=== PATIENT | female | born 1980 | race Caucasian/White ===

== ENCOUNTER 2018-06-13 06:44 | Emergency (ER) | payer OTHER ==
[~2018-06-13] VITALS: Ht 170.2 cm; Wt 59.0 kg
[~2018-06-13 06:44] MED LIST: IBUP-466
[2018-06-13 07:23] VITALS: BP 150/83
== END 2018-06-13 09:11 | disposition left against medical advice (07) ==
LOC: ER 06:44
DX: F32.9 Major depressive disorder, single episode, unspecified (principal); F20.9 Schizophrenia, unspecified
CPT/HCPCS: 99284

== ENCOUNTER 2018-06-14 01:39 | Emergency (ER) | payer MEDICAID, OTHER ==
[~2018-06-14] VITALS: Ht 165.1 cm; Wt 71.0 kg
[2018-06-14] MEDS: QUETIAPINE FUMARATE 100MG TABLET PO SCH ×2 (04:00→10:00)
[2018-06-14 04:15] LABS: BASOPHILS % 0.8 % (0.0-2.0); EOSINOPHILS % 2.3 % (0.0-5.0); HEMATOCRIT. 41.5 % (36.0-48.0); HEMOGLOBIN. 13.9 g/dL (12.0-16.0); LYMPHOCYTES % 31.9 % (20.0-50.0); MEAN CORPUSCULAR HEMOGLOBIN 27.1 pg (28.0-32.0); MEAN CORPUSCULAR VOLUME 80.8 fL (81.0-99.0); MEAN PLATELET VOLUME 8.3 fl (7.4-10.4); MONOCYTES % 6.9 % (2.0-8.0); NEUTROPHILS % 58.1 % (40.0-76.0); PLATELET 353 x1000/uL (130-400); RED BLOOD CELL COUNT 5.14 mill/uL (4.2-5.4); RED CELL DISTRIBUTION WIDTH 13.9 % (11.6-14.6)
[2018-06-14 04:21] LABS: CHLORIDE 105 mEq/L (98-107)
[2018-06-14 04:25] LABS: ETHANOL BLOOD < 10 mg/dL
[2018-06-14 05:27] LABS: CLARITY URINE CLEAR (CLEAR); COLOR URINE YELLOW (YELLOW); KETONES URINE 1+ (NEGATIVE); LEUKOCYTE ESTERASE URINE NEGATIVE (NEGATIVE); NITRITE URINE NEGATIVE (NEGATIVE); OCCULT BLOOD URINE NEGATIVE (NEGATIVE); PH URINE 5.5 (4.5-8.0); PROTEIN URINE 1+ (NEGATIVE); SPECIFIC GRAVITY URINE 1.011 (1.005-1.030); UROBILINOGEN URINE 0.2 E.U./dL (0.2-1.0)
[2018-06-14 05:42] LABS: *BARBITURATES SCREEN URINE NEGATIVE (NEGATIVE)
[2018-06-14 05:43] LABS: *BENZODIAZEPINES SCREEN URINE NEGATIVE (NEGATIVE); *COCAINE SCREEN URINE NEGATIVE (NEGATIVE); METHADONE URINE SCREEN NEGATIVE (NEGATIVE); OPIATES URINE SCREEN NEGATIVE (NEGATIVE)
[2018-06-14 05:44] LABS: PHENCYCLIDINE URINE SCREEN NEGATIVE (NEGATIVE)
[2018-06-14 05:49] LABS: *AMPHETAMINES SCREEN URINE PRESUMTIVE POSITIVE (NEGATIVE); CANNABINOID URINE SCREEN PRESUMTIVE POSITIVE (NEGATIVE)
[2018-06-14 06:05] VITALS: BP 129/70
[2018-06-14] MEDS ORDERED: POTASSIUM CHLORIDE 20MEQ TABLET SR PO ONE (06:15)
== END 2018-06-14 12:13 | disposition home or self-care (01) ==
LOC: ER 02:17
DX: F20.9 Schizophrenia, unspecified (principal); F41.9 Anxiety disorder, unspecified; F31.9 Bipolar disorder, unspecified; F12.10 Cannabis abuse, uncomplicated
CPT/HCPCS: 36415; 80053; 80305; 81003; 81025; 82962; 85025; 93005; 99285; G0482; Z7610

== ENCOUNTER 2018-08-25 14:22 | Emergency (ER) | payer MEDICAID ==
[~2018-08-25] VITALS: Ht 165.1 cm; Wt 59.0 kg
[2018-08-25 14:29] VITALS: BP 135/77
== END 2018-08-25 18:45 | disposition left against medical advice (07) ==
LOC: ER 16:49
DX: R10.30 Lower abdominal pain, unspecified (principal); Z53.21 Procedure and treatment not carried out due to patient leaving prior to being seen by health care provider

== ENCOUNTER 2018-09-05 08:36 | Emergency (ER) | payer MEDICAID ==
[~2018-09-05] VITALS: Ht 162.6 cm; Wt 67.0 kg
[2018-09-05] MEDS ORDERED: IBUPROFEN 600MG TABLET PO ONE (11:30)
[2018-09-05 12:30] LABS: BASOPHILS % 0.8 % (0.0-2.0); EOSINOPHILS % 1.6 % (0.0-5.0); HEMATOCRIT. 41.7 % (36.0-48.0); HEMOGLOBIN. 13.9 g/dL (12.0-16.0); LYMPHOCYTES % 27.9 % (20.0-50.0); MEAN CORPUSCULAR HEMOGLOBIN 26.9 pg (28.0-32.0); MEAN CORPUSCULAR VOLUME 80.5 fL (81.0-99.0); NEUTROPHILS % 63.7 % (40.0-76.0); PLATELET 452 x1000/uL (130-400); RED BLOOD CELL COUNT 5.18 mill/uL (4.2-5.4); RED CELL DISTRIBUTION WIDTH 14.3 % (11.6-14.6)
[2018-09-05 12:35] LABS: CHLORIDE 103 mEq/L (98-107)
[2018-09-05 12:39] LABS: ETHANOL BLOOD < 10 mg/dL
[2018-09-05 12:46] LABS: CLARITY URINE CLEAR (CLEAR); COLOR URINE YELLOW (YELLOW); KETONES URINE NEGATIVE (NEGATIVE); LEUKOCYTE ESTERASE URINE NEGATIVE (NEGATIVE); NITRITE URINE NEGATIVE (NEGATIVE); OCCULT BLOOD URINE NEGATIVE (NEGATIVE); PH URINE 7.5 (4.5-8.0); PROTEIN URINE NEGATIVE (NEGATIVE); SPECIFIC GRAVITY URINE 1.002 (1.005-1.030); UROBILINOGEN URINE 0.2 E.U./dL (0.2-1.0)
[2018-09-05 13:19] VITALS: BP 142/80
[2018-09-05 14:00] LABS: *BARBITURATES SCREEN URINE NEGATIVE (NEGATIVE); CANNABINOID URINE SCREEN NEGATIVE (NEGATIVE); METHADONE URINE SCREEN NEGATIVE (NEGATIVE); OPIATES URINE SCREEN NEGATIVE (NEGATIVE); PHENCYCLIDINE URINE SCREEN NEGATIVE (NEGATIVE)
[2018-09-05 14:01] LABS: *BENZODIAZEPINES SCREEN URINE NEGATIVE (NEGATIVE); *COCAINE SCREEN URINE NEGATIVE (NEGATIVE)
[2018-09-05 14:05] LABS: *AMPHETAMINES SCREEN URINE PRESUMTIVE POSITIVE (NEGATIVE)
== END 2018-09-05 13:23 | disposition home or self-care (01) ==
LOC: ER 08:36
DX: F15.10 Other stimulant abuse, uncomplicated (principal); F20.0 Paranoid schizophrenia; F31.9 Bipolar disorder, unspecified; F41.9 Anxiety disorder, unspecified; Z88.6 Allergy status to analgesic agent; Z79.899 Other long term (current) drug therapy
CPT/HCPCS: 36415; 80053; 80305; 81003; 81025; 85025; 99283; G0482

== ENCOUNTER 2018-09-27 07:43 | Emergency (ER) | payer MEDICAID ==
[~2018-09-27] VITALS: Ht 162.6 cm; Wt 62.0 kg
[2018-09-27] MEDS ORDERED: LORAZEPAM 2MG/ML CPJ IV ONE ×3 (09:45→19:30)
[2018-09-27] MEDS ORDERED: SODIUM CHLORIDE 0.9% 1,000 ML IV ONE ×2 (09:45→13:45)
[2018-09-27 09:48] LABS: BASOPHILS % 0.6 % (0.0-2.0); EOSINOPHILS % 1.2 % (0.0-5.0); HEMOGLOBIN. 14.8 g/dL (12.0-16.0); LYMPHOCYTES % 21.5 % (20.0-50.0); MEAN CORPUSCULAR HEMOGLOBIN 26.7 pg (28.0-32.0); MEAN CORPUSCULAR VOLUME 79.6 fL (81.0-99.0); MEAN PLATELET VOLUME 8.3 fl (7.4-10.4); MONOCYTES % 5.5 % (2.0-8.0); NEUTROPHILS % 71.2 % (40.0-76.0); PLATELET 415 x1000/uL (130-400); RED BLOOD CELL COUNT 5.53 mill/uL (4.2-5.4); RED CELL DISTRIBUTION WIDTH 14.3 % (11.6-14.6)
[2018-09-27 09:51] LABS: CHLORIDE 104 mEq/L (98-107)
[2018-09-27 09:55] LABS: ETHANOL BLOOD < 10 mg/dL
[2018-09-27 09:59] LABS: CREATINE KINASE 134 IU/L (26-192); HCG SCREEN NEGATIVE
[2018-09-27 10:57] LABS: CLARITY URINE CLEAR (CLEAR); COLOR URINE YELLOW (YELLOW); KETONES URINE TRACE (NEGATIVE); LEUKOCYTE ESTERASE URINE NEGATIVE (NEGATIVE); NITRITE URINE NEGATIVE (NEGATIVE); OCCULT BLOOD URINE NEGATIVE (NEGATIVE); PROTEIN URINE TRACE (NEGATIVE); SPECIFIC GRAVITY URINE 1.011 (1.005-1.030); UROBILINOGEN URINE 0.2 E.U./dL (0.2-1.0)
[2018-09-27 12:09] LABS: *BARBITURATES SCREEN URINE NEGATIVE (NEGATIVE); *BENZODIAZEPINES SCREEN URINE NEGATIVE (NEGATIVE); *COCAINE SCREEN URINE NEGATIVE (NEGATIVE); METHADONE URINE SCREEN NEGATIVE (NEGATIVE); OPIATES URINE SCREEN NEGATIVE (NEGATIVE)
[2018-09-27 12:10] LABS: CANNABINOID URINE SCREEN NEGATIVE (NEGATIVE); PHENCYCLIDINE URINE SCREEN NEGATIVE (NEGATIVE)
[2018-09-27 12:12] LABS: *AMPHETAMINES SCREEN URINE PRESUMTIVE POSITIVE (NEGATIVE)
[2018-09-28] MEDS ORDERED: SODIUM CHLORIDE 0.9% 1,000 ML IV ONE (11:30)
[2018-09-28 15:40] VITALS: BP 143/71
== END 2018-09-29 08:19 | disposition home or self-care (01) ==
LOC: ER 07:43
DX: T43.621A Poisoning by amphetamines, accidental (unintentional), initial encounter (principal); F32.9 Major depressive disorder, single episode, unspecified; R45.851 Suicidal ideations; R45.1 Restlessness and agitation; F15.10 Other stimulant abuse, uncomplicated; F20.9 Schizophrenia, unspecified; F31.9 Bipolar disorder, unspecified; F41.9 Anxiety disorder, unspecified; Z88.6 Allergy status to analgesic agent; Z79.899 Other long term (current) drug therapy; Y92.89 Other specified places as the place of occurrence of the external cause
CPT/HCPCS: 36415; 80053; 80305; 80307; 80329; 81003; 81025; 82550; 84443; 84703; 85025; 93005; 96374; 96376; 99284; G0482; J2060; J7030

== ENCOUNTER 2019-02-27 18:10 | Emergency (ER) | payer MEDICAID ==
[~2019-02-27] VITALS: Ht 167.6 cm; Wt 62.0 kg
[2019-02-27] MEDS ORDERED: SODIUM CHLORIDE 0.9% 1,000 ML IV ONE (19:52)
[2019-02-27] MEDS ORDERED: LIDOCAINE 1%/EPI 1:100,000 10 ML VIAL IJ ONE (20:00)
[2019-02-27] MEDS ORDERED: BACITRACIN ZINC OINT UDPKT TOP ONE (20:00)
[2019-02-27] MEDS ORDERED: IBUPROFEN 600MG TABLET PO ONE (20:00)
[2019-02-27] MEDS ORDERED: HALOPERIDOL LACTATE 5MG/ML VIAL IM ONE (20:15)
[2019-02-27] MEDS ORDERED: LORAZEPAM 2MG/ML CPJ IM ONE (20:15)
[2019-02-27 20:41] LABS: BASOPHILS % 0.5 % (0.0-2.0); EOSINOPHILS % 1.1 % (0.0-5.0); HEMATOCRIT. 39.6 % (36.0-48.0); HEMOGLOBIN. 13.3 g/dL (12.0-16.0); LYMPHOCYTES % 25.9 % (20.0-50.0); MEAN CORPUSCULAR HEMOGLOBIN 27.4 pg (28.0-32.0); MEAN CORPUSCULAR VOLUME 81.6 fL (81.0-99.0); MEAN PLATELET VOLUME 8.1 fl (7.4-10.4); MONOCYTES % 5.5 % (2.0-8.0); PLATELET 352 x1000/uL (130-400); RED BLOOD CELL COUNT 4.86 mill/uL (4.2-5.4); RED CELL DISTRIBUTION WIDTH 13.8 % (11.6-14.6)
[2019-02-27 20:44] LABS: CHLORIDE 107 mEq/L (98-107)
[2019-02-27 20:49] LABS: ETHANOL BLOOD < 10 mg/dL
[2019-02-27 20:52] LABS: HCG SCREEN NEGATIVE
[2019-02-27 23:20] LABS: CLARITY URINE CLEAR (CLEAR); COLOR URINE YELLOW (YELLOW); KETONES URINE NEGATIVE (NEGATIVE); LEUKOCYTE ESTERASE URINE NEGATIVE (NEGATIVE); NITRITE URINE NEGATIVE (NEGATIVE); OCCULT BLOOD URINE NEGATIVE (NEGATIVE); PH URINE 5.5 (4.5-8.0); PROTEIN URINE NEGATIVE (NEGATIVE); SPECIFIC GRAVITY URINE 1.007 (1.005-1.030); UROBILINOGEN URINE 0.2 E.U./dL (0.2-1.0)
[2019-02-27 23:34] LABS: CANNABINOID URINE SCREEN NEGATIVE (NEGATIVE)
[2019-02-27 23:35] LABS: *BARBITURATES SCREEN URINE NEGATIVE (NEGATIVE); *BENZODIAZEPINES SCREEN URINE NEGATIVE (NEGATIVE); *COCAINE SCREEN URINE NEGATIVE (NEGATIVE); METHADONE URINE SCREEN NEGATIVE (NEGATIVE); OPIATES URINE SCREEN NEGATIVE (NEGATIVE); PHENCYCLIDINE URINE SCREEN NEGATIVE (NEGATIVE)
[2019-02-27 23:37] LABS: *AMPHETAMINES SCREEN URINE PRESUMTIVE POSITIVE (NEGATIVE)
[2019-02-28] MEDS ORDERED: CEFAZOLIN 1000MG PREMIX 50 ML IV ONE (00:15)
[2019-02-28 10:10] VITALS: BP 102/76
== END 2019-02-28 10:11 ==
LOC: ER 18:10
DX: S02.2XXA Fracture of nasal bones, initial encounter for closed fracture (principal); S01.81XA Laceration without foreign body of other part of head, initial encounter; F29 Unspecified psychosis not due to a substance or known physiological condition; F32.9 Major depressive disorder, single episode, unspecified; R45.851 Suicidal ideations; W22.8XXA Striking against or struck by other objects, initial encounter; Y93.89 Activity, other specified; Y92.89 Other specified places as the place of occurrence of the external cause; Y99.8 Other external cause status
CPT/HCPCS: 36415; 70450; 70486; 80053; 80305; 80307; 80320; 80329; 81003; 81025; 84703; 85025; 96365; 96372; 99291; J0690; J1630; J2060; J3490; J7030; Z7610; G0480

== ENCOUNTER 2019-11-24 21:34 | Emergency (ER) | payer MEDICAID ==
[~2019-11-24] VITALS: Ht 162.6 cm; Wt 59.0 kg
[2019-11-24 21:42] VITALS: BP 122/77
== END 2019-11-25 00:22 | disposition left against medical advice (07) ==
LOC: ER 21:34
DX: R10.9 Unspecified abdominal pain (principal); Z53.21 Procedure and treatment not carried out due to patient leaving prior to being seen by health care provider

== ENCOUNTER 2020-01-03 16:46 | Emergency (ER) | payer MEDICAID ==
[~2020-01-03] VITALS: Ht 170.2 cm; Wt 58.0 kg
[2020-01-03 17:00] VITALS: BP 105/78
[2020-01-03 17:47] LABS: CLARITY URINE CLEAR (CLEAR); COLOR URINE YELLOW (YELLOW); KETONES URINE NEGATIVE (NEGATIVE); LEUKOCYTE ESTERASE URINE 2+ (NEGATIVE); NITRITE URINE NEGATIVE (NEGATIVE); OCCULT BLOOD URINE NEGATIVE (NEGATIVE); PH URINE 7.5 (4.5-8.0); PROTEIN URINE NEGATIVE (NEGATIVE); SPECIFIC GRAVITY URINE 1.024 (1.005-1.030); UROBILINOGEN URINE 0.2 E.U./dL (0.2-1.0)
[2020-01-06 09:06] LABS: NEISSERIA GONORRHOEAE NAA Negative (Negative)
== END 2020-01-03 19:02 | disposition left against medical advice (07) ==
LOC: ER 16:46
DX: A59.01 Trichomonal vulvovaginitis (principal)
CPT/HCPCS: 81003; 81025; 87491; 87529; 87591; 99283

== ENCOUNTER 2020-02-26 08:36 | Emergency (ER) | payer MEDICAID ==
[~2020-02-26] VITALS: Ht 170.2 cm; Wt 58.0 kg
[2020-02-26] MEDS ORDERED: GABA-533 PO (09:00)
[2020-02-26 09:42] LABS: CLARITY URINE CLEAR (CLEAR); COLOR URINE YELLOW (YELLOW); KETONES URINE NEGATIVE (NEGATIVE); LEUKOCYTE ESTERASE URINE 2+ (NEGATIVE); NITRITE URINE NEGATIVE (NEGATIVE); OCCULT BLOOD URINE NEGATIVE (NEGATIVE); PROTEIN URINE NEGATIVE (NEGATIVE); SPECIFIC GRAVITY URINE 1.009 (1.005-1.030); UROBILINOGEN URINE 0.2 E.U./dL (0.2-1.0)
[2020-02-26] MEDS ORDERED: IBUPROFEN 600MG TABLET PO ONE (09:45)
[2020-02-26] MEDS ORDERED: AZITHROMYCIN 500 MG TABLET PO ONE (09:45)
[2020-02-26] MEDS ORDERED: CEFTRIAXONE SODIUM 250 MG/VIAL IM ONE (09:45)
[2020-02-26] MEDS ORDERED: LIDOCAINE HCL/PF 1% 10 MG/ML 5ML VIAL IJ ONE (09:45)
[2020-02-26 10:52] VITALS: BP 103/61
[2020-03-02 04:07] LABS: NEISSERIA GONORRHOEAE NAA Negative (Negative)
== END 2020-02-26 10:55 | disposition home or self-care (01) ==
LOC: ER 08:36
DX: Z20.2 Contact with and (suspected) exposure to infections with a predominantly sexual mode of transmission (principal)
CPT/HCPCS: 81003; 81025; 87210; 87491; 87591; 96372; 99283; J0696; J3490

== ENCOUNTER 2022-07-15 18:29 | Emergency (ER) | payer MEDICAID, OTHER ==
[~2022-07-15] VITALS: Ht 165.1 cm; Wt 80.0 kg
[~2022-07-15 18:29] MED LIST changes: +GABA-533 PO
[2022-07-15 18:40] VITALS: BP 146/94
== END 2022-07-15 21:59 | disposition left against medical advice (07) ==
LOC: ER 18:29
DX: Z53.21 Procedure and treatment not carried out due to patient leaving prior to being seen by health care provider (principal)

== ENCOUNTER 2022-08-20 15:25 | Emergency (ER) | payer OTHER ==
[~2022-08-20] VITALS: Ht 165.1 cm; Wt 80.0 kg
[2022-08-20 16:06] VITALS: BP 134/80
== END 2022-08-21 03:09 | disposition left against medical advice (07) ==
LOC: ER 15:49
DX: Z53.21 Procedure and treatment not carried out due to patient leaving prior to being seen by health care provider (principal)

== ENCOUNTER 2024-04-15 10:47 | Emergency (ER) | payer MEDICAID ==
[~2024-04-15] VITALS: Ht 165.1 cm; Wt 76.2 kg
[~2024-04-15 10:47] MED LIST changes: -GABA-533 PO; +GABA-534 PO
[2024-04-15 11:03] VITALS: O2SAT 100
[2024-04-15 11:22] LABS: CLARITY URINE CLEAR (CLEAR); COLOR URINE YELLOW (YELLOW); GLUCOSE URINE NEGATIVE (NEGATIVE); KETONES URINE NEGATIVE (NEGATIVE); LEUKOCYTE ESTERASE URINE NEGATIVE (NEGATIVE); NITRITE URINE NEGATIVE (NEGATIVE); OCCULT BLOOD URINE NEGATIVE (NEGATIVE); PH URINE 6.5 (4.5-8.0); PROTEIN URINE TRACE (NEGATIVE); SPECIFIC GRAVITY URINE 1.013 (1.005-1.030)
[2024-04-15 11:31] LABS: BASOPHILS % 0.6 % (0.0-2.0); EOSINOPHILS % 1.1 % (0.0-5.0); HEMATOCRIT. 42.7 % (36.0-48.0); HEMOGLOBIN. 14.3 g/dL (12.0-16.0); LYMPHOCYTES % 19.4 % (20.0-50.0); MEAN CORPUSCULAR HGB CONC 33.5 g/dL (31.0-37.0); MEAN CORPUSCULAR VOLUME 80.7 fL (81.0-99.0); MEAN PLATELET VOLUME 8.1 fl (7.4-10.4); MONOCYTES % 4.4 % (2.0-8.0); NEUTROPHILS % 74.5 % (40.0-76.0); PLATELET 420 x1000/uL (130-400); RED CELL DISTRIBUTION WIDTH 14.4 % (11.6-14.6); WHITE BLOOD COUNT 10.8 x1000/uL (4.5-11.0)
[2024-04-15 11:32] LABS: BACTERIA URINE 1+; RBC URINE 0-2 /hpf (0-2); SQUAMOUS EPITHELIAL CELL URINE 1+ /lpf (RARE/1+); WBC URINE 0-2 /hpf (0-2); YEAST URINE NONE SEEN
[2024-04-15] MEDS: CEFTRIAXONE 1GM/50ML 50 ML IV ONE (11:40)
[2024-04-15 11:41] LABS: HCG SCREEN NEGATIVE; PROTHROMBIN TIME 10.7 sec (9.6-11.0)
[2024-04-15] MEDS: SODIUM CHLORIDE 0.9% 1000ML BAG (SEPSIS BOLUS) IV ONE (11:52)
[2024-04-15 11:54] LABS: CHLORIDE 105 mEq/L (98-107); POTASSIUM 3.9 mEq/L (3.5-5.1); SODIUM 138 mEq/L (136-145)
[2024-04-15 11:55] LABS: CALCIUM 9.5 mg/dL (8.7-10.4); CARBON DIOXIDE 27 mEq/L (21-32)
[2024-04-15 12:00] LABS: CREATININE 0.5 mg/dL (0.6-1.0); GLUCOSE 98 mg/dL (70-105); UREA NITROGEN BLOOD 8 mg/dL (9-23)
[2024-04-15 12:02] LABS: ALANINE AMINOTRANSFERASE 19 IU/L (10-49); ALBUMIN 4.9 g/dL (3.2-4.8); ASPARTATE AMINOTRANSFERASE 18 IU/L (<34); BILIRUBIN DIRECT 0.2 mg/dL (<=3.0); BILIRUBIN TOTAL 0.6 mg/dL (0.1-1.0); PROTEIN TOTAL 7.8 g/dL (6.0-8.3)
[2024-04-15 12:03] LABS: TROPONIN I HIGH SENSITIVITY < 4 ng/L (3.0-34)
[2024-04-15 15:49] VITALS: BP 125/72; PULSE 76; RESP 21; TEMP 98.6
== END 2024-04-15 15:59 | disposition home or self-care (01) ==
LOC: ER 10:47 → EDBEDREQ 11:19 → ER 15:59
DX: R30.0 Dysuria (principal); M54.9 Dorsalgia, unspecified; R07.9 Chest pain, unspecified
CPT/HCPCS: 99285; 96374; 71045; 80076; 80048; 81003; 84703; 83605; 83690; 85025; 85610; 87040; 87086; 84484; 36415; 84145; 93005; J0696; J7030

== ENCOUNTER 2024-05-24 13:20 | Emergency (ER) | payer OTHER ==
[~2024-05-24] VITALS: Ht 162.6 cm; Wt 75.0 kg
[2024-05-24 13:22] VITALS: BP 135/81; PULSE 98; RESP 18; TEMP 98.7; O2SAT 99
[2024-05-24 13:24] VITALS: O2SAT 98
== END 2024-05-24 15:00 | disposition left against medical advice (07) ==
LOC: ER 13:20
DX: T78.49XA Other allergy, initial encounter (principal); X58.XXXA Exposure to other specified factors, initial encounter; Y93.9 Activity, unspecified; Y92.89 Other specified places as the place of occurrence of the external cause; Y99.8 Other external cause status

== ENCOUNTER 2024-07-03 11:00 | Emergency (ER) | payer OTHER ==
[~2024-07-03] VITALS: Ht 162.6 cm; Wt 65.0 kg
[2024-07-03 11:09] VITALS: BP 129/64; PULSE 93; RESP 16; TEMP 98.6; O2SAT 100
[2024-07-03] MEDS: IBUPROFEN 600MG TABLET PO ONE (12:37)
== END 2024-07-03 13:04 | disposition left against medical advice (07) ==
LOC: ER 11:00
DX: M79.671 Pain in right foot (principal); M79.672 Pain in left foot; F31.9 Bipolar disorder, unspecified; F20.9 Schizophrenia, unspecified; F43.10 Post-traumatic stress disorder, unspecified
CPT/HCPCS: 99282

== ENCOUNTER 2024-07-13 19:53 | Emergency (ER) | payer OTHER ==
[~2024-07-13] VITALS: Ht 167.6 cm; Wt 72.0 kg
[2024-07-13 19:56] VITALS: O2SAT 100
[2024-07-13] MEDS: ZIPRASIDONE MESYLATE 20MG/VIAL IM STA (20:52)
[2024-07-13] MEDS: DIPHENHYDRAMINE 50MG/ML VIAL IM STA (20:52)
[2024-07-13] MEDS: IBUPROFEN 600MG TABLET PO STA (20:52)
[2024-07-13 22:21] LABS: BASOPHILS % 0.5 % (0.0-2.0); DIFFERENTIAL COMMENT 0; EOSINOPHILS % 1.2 % (0.0-5.0); HEMATOCRIT. 42.3 % (36.0-48.0); HEMOGLOBIN. 14.5 g/dL (12.0-16.0); LYMPHOCYTES % 24.7 % (20.0-50.0); MEAN CORPUSCULAR HGB CONC 34.4 g/dL (31.0-37.0); MEAN CORPUSCULAR VOLUME 78.4 fL (81.0-99.0); MEAN PLATELET VOLUME 7.6 fl (7.4-10.4); MONOCYTES % 6.3 % (2.0-8.0); NEUTROPHILS % 67.3 % (40.0-76.0); PLATELET 419 x1000/uL (130-400); RED BLOOD CELL COUNT 5.39 mill/uL (4.2-5.4); RED CELL DISTRIBUTION WIDTH 14.6 % (11.6-14.6); WHITE BLOOD COUNT 10.9 x1000/uL (4.5-11.0)
[2024-07-13 22:26] LABS: CHLORIDE 106 mEq/L (98-107); POTASSIUM 3.4 mEq/L (3.5-5.1); SODIUM 139 mEq/L (136-145)
[2024-07-13 22:27] LABS: CALCIUM 9.1 mg/dL (8.7-10.4); CARBON DIOXIDE 25 mEq/L (21-32)
[2024-07-13 22:32] LABS: CREATININE 0.5 mg/dL (0.6-1.0); GLUCOSE 97 mg/dL (70-105); UREA NITROGEN BLOOD 11 mg/dL (9-23)
[2024-07-13 22:33] LABS: ACETAMINOPHEN < 2 ug/mL (10-30); ETHANOL BLOOD < 10 mg/dL (<10)
[2024-07-14 00:09] LABS: HCG SCREEN NEGATIVE
[2024-07-14 09:41] VITALS: BP 124/70; PULSE 81; RESP 15; TEMP 36.94740; O2SAT 100
== END 2024-07-14 10:27 | disposition home or self-care (01) ==
LOC: ER 19:53
DX: R41.82 Altered mental status, unspecified (principal); F20.9 Schizophrenia, unspecified; F31.9 Bipolar disorder, unspecified
CPT/HCPCS: 80048; 80307; 80329; 80320; 84703; 85025; 36415; 96372; 99284; J1200; J3486; G0480